=== PATIENT | male | born 1955 | race Caucasian/White ===

== ENCOUNTER 2021-06-15 10:15 | Emergency (ER) | payer BC ==
[~2021-06-15] VITALS: Ht 182.9 cm; Wt 90.7 kg
--- NOTE | 2021-06-15 10:26 | NUR ---
BIB SELF C/O R ARM AND R ELBOW PAIN S/P SLIP AND FALL IN THE LADDER. RATES PAINS 6/10. WILL CONTINUE TO MONITOR THE PATIENT.
--- NOTE | 2021-06-15 10:44 | NUR ---
x-ray tech at the bedside
[2021-06-15] MEDS ORDERED: IBUP-1955 PO (11:16)
[2021-06-15] MEDS ORDERED: KETOROLAC TROMETHAMINE 15 MG/ML VIAL ONE (11:21)
[2021-06-15] MEDS ORDERED: KETOROLAC TROMETHAMINE INJ 30 MG/ML VIAL IM ONE (11:30)
[2021-06-15 11:33] VITALS: BP 126/75
--- NOTE | 2021-06-15 11:33 | NUR ---
Patient discharged to home in stable condition. Written and verbal after care instructions given. Patient verbalizes understanding of instruction.
== END 2021-06-15 11:36 | disposition home or self-care (01) ==
LOC: ER 10:24
DX: S52.121A Displaced fracture of head of right radius, initial encounter for closed fracture (principal); W10.9XXA Fall (on) (from) unspecified stairs and steps, initial encounter; Y93.89 Activity, other specified; Y92.89 Other specified places as the place of occurrence of the external cause; Y99.8 Other external cause status
CPT/HCPCS: 29105; 73080; 96372; 99283; J1885

== ENCOUNTER 2021-10-23 19:34 | Inpatient (IN) | payer BC ==
[~2021-10-23] VITALS: Ht 182.9 cm; Wt 92.1 kg
[~2021-10-23 19:34] MED LIST: IBUP-1955 PO
--- NOTE | 2021-10-23 20:06 | NUR ---
BIBS. SUDDEN ONSET PALPITATION X 2 HRS W/ INTERMITENT CHEST PRESSURE. PT REPORTS C/P HAS IMPROVED BUT REPORTS AT HOME EKG SHOWED HR IN 150S. REPORT HISTORY OF AFIB A FEW YEARS PRIOR AND TAKES METOPROLOL. PT AWAKE AND ALERT X4 BREATHING EVEN AND UNLABORED. PLACED ON PRESSER ALL AROUND AND ALL V/S WNL.
--- NOTE | 2021-10-23 20:12 | NUR ---
20G RAC ESTABLISHED. BLOOD DRAWN AND SENT TO LAB.
[2021-10-23] MEDS ORDERED: ASPIRIN 325 MG TABLET ONE (20:22)
[2021-10-23] MEDS ORDERED: NITROGLYCERIN 0.4 MG/TAB BOTTLE ONE (20:22)
[2021-10-23] MEDS ORDERED: ASPIRIN 325 MG TABLET PO ONE (20:30)
[2021-10-23] MEDS ORDERED: NITROGLYCERIN 0.4 MG/TAB BOTTLE SL ONE (20:30)
[2021-10-23 20:31] LABS: BASOPHILS # (AUTO) 0.1 K/uL (0.0-0.2); BASOPHILS % (AUTO) 0.6 % (0.0-2.0); EOSINOPHILS % (AUTO) 3.8 % (0.0-6.0); HEMATOCRIT 46 % (39-51); HEMOGLOBIN 15.3 g/dL (13.5-17.5); LYMPHOCYTES # (AUTO) 1.8 K/uL (0.8-4.8); LYMPHOCYTES % (AUTO) 19.6 % (20.0-44.0); MEAN CORPUSCULAR HGB CONC 33 g/dl (31.0-36.0); MEAN CORPUSCULAR VOLUME 87 fL (80-96); MONOCYTES # (AUTO) 0.9 K/uL (0.1-1.30); MONOCYTES % (AUTO) 9.2 % (2.0-12.0); NEUTROPHILS # (AUTO) 6.2 K/uL (1.8-8.9); NEUTROPHILS % (AUTO) 66.8 % (43.0-81.0); PLATELET COUNT (AUTO) 370 K/uL (150-450); RED BLOOD CELL COUNT(AUTO) 5.29 MIL/uL (4.5-6.0); WHITE BLOOD COUNT (AUTO) 9.3 K/uL (4.3-11.0)
[2021-10-23 20:39] LABS: CALCIUM, SERUM 8.6 mg/dL (8.5-10.1); CARBON DIOXIDE 30 mmol/L (21-32); CHLORIDE 106 mmol/L (98-107); CREATININE 1.1 mg/dL (0.6-1.3); GLUCOSE 112 mg/dL (74-106); POTASSIUM 3.4 mmol/L (3.5-5.1); SODIUM SERUM 142 mmol/L (136-145); UREA NITROGEN, BLOOD 18 mg/dL (7-18)
--- NOTE | 2021-10-23 21:10 | NUR ---
shirley collected and sent to lab
[2021-10-23] MEDS ORDERED: MORPHINE SULFATE INJ 2 MG/ML DISP.SYRIN IV PRN (22:30)
[2021-10-23] MEDS ORDERED: MAG HYDROX/AL HYDROX/SIMETH 30 ML UDC PO PRN (22:30)
[2021-10-23] MEDS ORDERED: ACETAMINOPHEN 325 MG TABLET PO PRN (22:30)
[2021-10-23] MEDS ORDERED: ONDANSETRON HCL/PF 4 MG/2 ML VIAL IVP PRN (22:30)
[2021-10-23] MEDS ORDERED: NITROGLYCERIN 0.4 MG/TAB BOTTLE SL PRN (22:30)
[2021-10-23] MEDS ORDERED: DOCUSATE SODIUM 100 MG CAPSULE PO PRN (22:30)
[2021-10-23] MEDS ORDERED: METO-357 PO (23:50)
[2021-10-23] MEDS ORDERED: ATOR10TA PO (23:50)
[2021-10-23] MEDS ORDERED: ESCI20TA PO (23:50)
[2021-10-23] MEDS ORDERED: ALLO100T PO (23:50)
[2021-10-23] MEDS ORDERED: APIX5TAB PO (23:50)
--- NOTE | 2021-10-24 00:17 | NUR ---
REPORT GIVEN TO LONA
[2021-10-24 00:31] VITALS: BP 102/74
--- NOTE | 2021-10-24 00:33 | NUR ---
RN NOTE: RECEIVING FROM ER PATIENT ARRIVED TO UNIT FROM ER VIA GURNEY. PATIENT STABLE AND ABLE TO AMBULATE TO HIS BED. A/OX4. NO S/S OF DISTRESS, BREATHING WITHOUT DIFFICULTY ON ROOM AIR. RAC #20 INTACT AND PATENT. TELE MONITOR APPLIED AND READS SR 63. PATIENT'S BELONGINGS ACCOUNTED FOR, LOGGED INTO SHEET, AND PLACED IN CHART. PATIENT WAS ORIENTED TO THE UNIT, GIVEN CALL GIRON AND INSTRUCTED ON ITS USE. SAFETY MEASURES IN PLACE: BED LOCKED AND AT LOWEST POSITION, RAILS UP X2, CALL GIRON WITHIN REACH. WILL CONTINUE TO MONITOR PATIENT.
--- NOTE | 2021-10-24 00:36 | NUR ---
PT TRANSPORTED TO ROOM 324-2 ON CARDIAC PER ACLS IN STABLE CONDITION
[2021-10-24 01:43] VITALS: BP 102/74
[2021-10-24 04:00] VITALS: BP 128/76
[2021-10-24 06:01] LABS: BASOPHILS % (AUTO) 0.5 % (0.0-2.0); EOSINOPHILS % (AUTO) 5.7 % (0.0-6.0); HEMATOCRIT 42 % (39-51); LYMPHOCYTES % (AUTO) 27.3 % (20.0-44.0); MEAN CORPUSCULAR HGB CONC 33 g/dl (31.0-36.0); MEAN CORPUSCULAR VOLUME 88 fL (80-96); MONOCYTES # (AUTO) 0.8 K/uL (0.1-1.30); MONOCYTES % (AUTO) 10.6 % (2.0-12.0); NEUTROPHILS # (AUTO) 4.1 K/uL (1.8-8.9); NEUTROPHILS % (AUTO) 55.9 % (43.0-81.0); PLATELET COUNT (AUTO) 333 K/uL (150-450); RED BLOOD CELL COUNT(AUTO) 4.77 MIL/uL (4.5-6.0); WHITE BLOOD COUNT (AUTO) 7.4 K/uL (4.3-11.0)
[2021-10-24 06:27] LABS: THYROID STIMULATING HORMONE 2.494 uIU/mL (0.358-3.74)
--- NOTE | 2021-10-24 06:35 | NUR ---
RN CLOSING NOTE PATIENT AWAKE IN BED. A/OX4. NO S/S OF DISTRESS, BREATHING WITHOUT DIFFICULTY ON ROOM AIR. RAC #20 SL INTACT AND PATENT. TELE READS SB 53 W/ BBB, PVCs, AND PACs. SAFETY MEASURES IN PLACE: BED LOCKED AND AT LOWEST POSITION, RAILS UP X2, CALL GIRON WITHIN REACH. WILL ENDORSE TO THE NEXT SHIFT FOR LIZA.
[2021-10-24 07:01] LABS: ALBUMIN 3.2 g/dL (3.4-5.0); BILIRUBIN,TOTAL 0.3 mg/dL (0.2-1.0); CALCIUM, SERUM 8.4 mg/dL (8.5-10.1); CREATININE 1.1 mg/dL (0.6-1.3); MAGNESIUM 2.3 mg/dL (1.8-2.4); PHOSPHORUS 3.7 mg/dL (2.5-4.9); POTASSIUM 3.8 mmol/L (3.5-5.1); TOTAL PROTEIN, SERUM 6.1 g/dL (6.4-8.2)
--- NOTE | 2021-10-24 07:15 | NUR ---
RN OPENING NOTE RECEIVED PT IN BED AWAKE, A/OX 4. NO SIGNS OF RESPIRATORY DISTRESS OR SOB NOTED. STABLE ON RA. ON TELE MONITORING READING NSR AT 53. PT DENIES CHEST PAIN OR ANY PAIN AT THIS TIME. RIGHT AC 20G IV INTACT AND PATENT. SAFETY MEASURES: BED LOCKED, IN LOWEST POSITION, SIDE RAILS X2, CALL LIGHT WITHIN REACH. WILL CONTINUE TO MONITOR CLOSELY.
[2021-10-24 08:00] VITALS: BP 121/76
[2021-10-24 08:57] VITALS: BP 121/74
[2021-10-24] MEDS ORDERED: ASPIRIN 81 MG TAB.CHEW PO SCH (09:00)
[2021-10-24] MEDS ORDERED: METOPROLOL SUCCINATE 50 MG TAB.SR.24H PO SCH (09:00)
[2021-10-24] MEDS ORDERED: ALLOPURINOL 100 MG TABLET PO SCH (09:00)
[2021-10-24] MEDS ORDERED: ESCITALOPRAM OXALATE (10 MG) 10 MG TABLET PO SCH (09:00)
[2021-10-24] MEDS ORDERED: APIXABAN 5 MG TABLET PO SCH (09:00)
[2021-10-24] MEDS ORDERED: ENOXAPARIN SODIUM 60 MG/0.6 ML DISP.SYRIN SQ SCH (09:00)
--- NOTE | 2021-10-24 12:07 | NUR ---
PT DISCHARGE NOTE PT CONDITION STABLE AT DISCHARGE. NO C/O PAIN OF ANY KIND. DISCHARGE INSTRUCTIONS GIVEN. DISCHARGE PACKET GIVEN AND SIGNED BY THE PATIENT. IV TAKEN OUT AND TELE BOX TAKEN OFF. DISCHARGE TO HOME WILL DRIVE HIMSELF.
[2021-10-24] MEDS ORDERED: ATORVASTATIN 10 MG TABLET PO SCH (22:00)
== END 2021-10-24 12:05 | disposition home or self-care (01) | DRG 948 ==
LOC: ER 19:44 → TELE 23:45
PROVIDERS: ADMIT Registered Nurse; ATTEND Nurse Practitioner Family
DX: G89.18 Other acute postprocedural pain (principal); E87.6 Hypokalemia; I48.91 Unspecified atrial fibrillation; I11.0 Hypertensive heart disease with heart failure; I50.9 Heart failure, unspecified; Z79.899 Other long term (current) drug therapy; Z79.01 Long term (current) use of anticoagulants; K76.9 Liver disease, unspecified; F17.200 Nicotine dependence, unspecified, uncomplicated; E66.9 Obesity, unspecified; Z68.27 Body mass index [BMI] 27.0-27.9, adult; R73.9 Hyperglycemia, unspecified; R07.89 Other chest pain
CPT/HCPCS: 36415; 71045-TC; 80048-TC; 80053-TC; 83735-TC; 83880; 84100-TC; 84443-TC; 84484-TC; 85025-TC; 85378-TC; 87081-TC; 93307-TC; C9803; G0378

== ENCOUNTER 2022-02-22 07:37 | Inpatient (IN) | payer BC ==
[2022-02-22] VITALS (8 sets, daily range): BP systolic 89–114; BP diastolic 58–69
[~2022-02-22] VITALS: Ht 182.9 cm; Wt 96.6 kg
[~2022-02-22 07:37] MED LIST changes: +ALLO100T PO; +APIX5TAB PO; +ATOR10TA PO; +ESCI20TA PO; -IBUP-1955 PO; +METO-357 PO
--- NOTE | 2022-02-22 08:18 | NUR ---
C/O RLQ AB PAIN X 4 DAYS S/P COLONOSCOPY. DR. ESTEVEZ AT BEDSIDE FOR EVAL.
[2022-02-22] MEDS ORDERED: MORPHINE SULFATE INJ 4 MG/ML DISP.SYRIN ONE (08:23)
[2022-02-22] MEDS ORDERED: ONDANSETRON HCL/PF 4 MG/2 ML VIAL ONE (08:23)
[2022-02-22] MEDS ORDERED: IV NS 0.9% 1,000 ML BAG IV ONE (08:30)
[2022-02-22] MEDS ORDERED: ONDANSETRON HCL/PF 4 MG/2 ML VIAL IVP ONE (08:30)
[2022-02-22] MEDS ORDERED: MORPHINE SULFATE INJ 2 MG/ML DISP.SYRIN IV ONE (08:30)
--- NOTE | 2022-02-22 08:34 | NUR ---
ESTABLISHED IV 18G LEFT AC. BLOOD DRAWN AND SENT TO LAB. NS FLUIDS ADMINISTERED.
[2022-02-22 08:38] LABS: BASOPHILS # (AUTO) 0.1 K/uL (0.0-0.2); BASOPHILS % (AUTO) 0.7 % (0.0-2.0); EOSINOPHILS % (AUTO) 0.1 % (0.0-6.0); HEMATOCRIT 50 % (39-51); HEMOGLOBIN 16.4 g/dL (13.5-17.5); LYMPHOCYTES # (AUTO) 0.8 K/uL (0.8-4.8); LYMPHOCYTES % (AUTO) 5.3 % (20.0-44.0); MEAN CORPUSCULAR HGB CONC 33 g/dl (31.0-36.0); MEAN CORPUSCULAR VOLUME 88 fL (80-96); MONOCYTES # (AUTO) 1.2 K/uL (0.1-1.30); MONOCYTES % (AUTO) 7.7 % (2.0-12.0); NEUTROPHILS # (AUTO) 13.2 K/uL (1.8-8.9); NEUTROPHILS % (AUTO) 86.2 % (43.0-81.0); PLATELET COUNT (AUTO) 343 K/uL (150-450); RED BLOOD CELL COUNT(AUTO) 5.75 MIL/uL (4.5-6.0); WHITE BLOOD COUNT (AUTO) 15.3 K/uL (4.3-11.0)
--- NOTE | 2022-02-22 08:42 | NUR ---
INTERIOR DESIGN INSTRUCTOR AT BEDSIDE.
[2022-02-22 08:48] LABS: CALCIUM, SERUM 8.4 mg/dL (8.5-10.1); CARBON DIOXIDE 26 mmol/L (21-32); CHLORIDE 97 mmol/L (98-107); CREATININE 1.6 mg/dL (0.6-1.3); GLUCOSE 136 mg/dL (74-106); POTASSIUM 3.7 mmol/L (3.5-5.1); SODIUM SERUM 134 mmol/L (136-145); UREA NITROGEN, BLOOD 29 mg/dL (7-18)
[2022-02-22 08:54] LABS: ALANINE AMINOTRANSFERASE 18 U/L (12-78); ALBUMIN 3.2 g/dL (3.4-5.0); ALKALINE PHOSPHATASE 51 U/L (46-116); ASPARTATE AMINOTRANSFERASE 23 U/L (15-37); BILIRUBIN,DIRECT 0.3 mg/dL (0.0-0.2); BILIRUBIN,TOTAL 1.2 mg/dL (0.2-1.0); LIPASE 39 U/L (73-393); TOTAL PROTEIN, SERUM 7.6 g/dL (6.4-8.2)
[2022-02-22] MEDS ORDERED: IOHEXOL-300 100 ML VIAL IV ONE (09:08)
--- NOTE | 2022-02-22 09:12 | NUR ---
PT TAKEN TO CT VIA [facility]
[2022-02-22] MEDS ORDERED: CEFEPIME 1 GM in IV D5W 50 ML IV ONE (10:00)
--- NOTE | 2022-02-22 10:10 | NUR ---
CALLED [facility] FOR TELE BED.
[2022-02-22] MEDS ORDERED: ONDANSETRON HCL/PF 4 MG/2 ML VIAL IVP PRN (10:30)
[2022-02-22] MEDS ORDERED: Z GUARD REMEDY 4 OZ OINT TP PRN (10:30)
[2022-02-22] MEDS ORDERED: PANTOPRAZOLE 40 MG VIAL IV SCH (10:30)
[2022-02-22] MEDS ORDERED: MORPHINE SULFATE INJ 2 MG/ML DISP.SYRIN IV PRN (10:30)
[2022-02-22] MEDS ORDERED: IV D5/ 0.9% NACL 1,000 ML IV PRN (10:30)
--- NOTE | 2022-02-22 10:30 | NUR ---
COVID SWAB COLLECTED AND SENT TO LAB.
[2022-02-22] MEDS ORDERED: BUPIVACAINE MPF 0.5% W/EPI INJ 30 ML VIAL ONE (11:47)
[2022-02-22] MEDS ORDERED: LIDOCAINE 1% INJ 50 ML MDV IJ ONE (11:47)
--- NOTE | 2022-02-22 12:01 | NUR ---
DR. VELÁSQUEZ AT BEDSIDE.
--- NOTE | 2022-02-22 12:06 | NUR ---
NPO for surgery
--- NOTE | 2022-02-22 12:19 | NUR ---
PT TAKEN TO SURGERY VIA GURNEY. ALL PT BELONGINGS WITH PT.
[2022-02-22] MEDS ORDERED: HYDROMORPHONE INJ 2 MG/ML DISP.SYRIN ONE (12:27)
[2022-02-22] MEDS ORDERED: FENTANYL PF 250MCG/5ML AMPUL ONE (12:27)
[2022-02-22] MEDS ORDERED: FAMOTIDINE/PF INJ 20 MG/2 ML VIAL IV ONE (12:28)
[2022-02-22] MEDS ORDERED: MIDAZOLAM HCL 2 MG/2ML VIAL ONE (12:28)
[2022-02-22] MEDS ORDERED: ROCURONIUM BROMIDE 50 MG/5 ML ONE (12:29)
[2022-02-22] MEDS ORDERED: METRONIDAZOLE 500MG/ NS 100ML 100 ML IV ONE (12:30)
[2022-02-22] MEDS ORDERED: CEFEPIME 1 GM in IV D5W 50 ML IV SCH (13:00)
[2022-02-22] MEDS ORDERED: BACITRACIN ZINC OINT (15 GM) 15 GM TUBE TP ONE (14:54)
[2022-02-22] MEDS ORDERED: ALBUTEROL FS 2.5 MG/3 ML VIAL.NEB ONE (15:44)
[2022-02-22] MEDS ORDERED: DEXAMETHASONE SOD PHOSPHATE 10 MG/ML VIAL ONE (16:05)
[2022-02-22] MEDS ORDERED: methylPREDNISolone SOD SUCC 125 MG/2ML VIAL ONE (16:05)
[2022-02-22] MEDS ORDERED: FUROSEMIDE 20 MG/2 ML VIAL ONE (16:12)
[2022-02-22] MEDS ORDERED: MEPERIDINE25 MG SYR 25 MG/ML VIAL ONE (16:32)
--- NOTE | 2022-02-22 16:45 | NUR ---
RN NOTES RECEIVED PT IN ROOM 253 POST OP, FOR OBSERVATION , PT IS DRAWZY , FOLLOWS COMMAND, ON TELE ST , DRESSING TO ABD , CLEAN AND DRY AND INTACT, IV SITE CDI, NO DRAINAGE NOTED, O2 SAT IN HIGH 90'S, NO DISTRESS NOTED , VSS STABLE , CONTINUE TO MONITOR
[2022-02-22] MEDS: PANTOPRAZOLE 40 MG VIAL IV SCH (17:42)
[2022-02-22] MEDS: CELECOXIB 100 MG CAPSULE PO SCH (17:53)
[2022-02-22] MEDS: GABAPENTIN 300 MG CAPSULE PO SCH (17:53)
[2022-02-22] MEDS: ACETAMINOPHEN 325 MG TABLET PO SCH (17:54)
--- NOTE | 2022-02-22 17:54 | NUR ---
RN NOTES PT LETHARGIC , PO MEDS HELD AT THIS TIME ,
[2022-02-22] MEDS ORDERED: HYDROMORPHONE INJ 2 MG/ML DISP.SYRIN IV PRN (18:00)
[2022-02-22] MEDS: IV LR 1000 ML 1,000 ML IV PRN ×2 (18:07→23:42)
--- NOTE | 2022-02-22 18:13 | NUR ---
RN NOTES VSS STABLE,PT IS AWAKE, NO DISTESS NOTED, WILL ENDORSE TO MOBILITY SCOOTER REPAIRER NURSE FOR CONTINUITY OF CARE
--- NOTE | 2022-02-22 18:31 | NUR ---
RN NOTES PT REFUSED TO HAVE HYDROMORPHONE , STATED DOES NOT WORK FOR HIM , WANTS MORPHINE INSTEAD, BOOT TRIMMER NOTIFED, NEW ORDER RECEIVED
[2022-02-22] MEDS: ZOSYN IVPB 3.375 G in IV D5W 50ml IV SCH ×2 (19:03→23:42)
[2022-02-22] MEDS: MORPHINE SULFATE INJ 2 MG/ML DISP.SYRIN IV PRN (20:24)
[2022-02-22] MEDS ORDERED: CEFEPIME 1 GM VIAL ONE (21:46)
[2022-02-22] MEDS: CEFEPIME 2 GM in IV D5W 100 ML IV SCH (22:00)
[2022-02-23] VITALS (23 sets, daily range): BP systolic 85–120; BP diastolic 53–78
[2022-02-23] MEDS: GABAPENTIN 300 MG CAPSULE PO SCH ×3 (02:00→18:20)
[2022-02-23] MEDS: ACETAMINOPHEN 325 MG TABLET PO SCH ×3 (02:00→18:20)
[2022-02-23] MEDS: MORPHINE SULFATE INJ 2 MG/ML DISP.SYRIN IV PRN ×2 (04:29→10:00)
[2022-02-23 05:07] LABS: BASOPHILS % (AUTO) 0.1 % (0.0-2.0); HEMATOCRIT 43 % (39-51); HEMOGLOBIN 14.1 g/dL (13.5-17.5); LYMPHOCYTES # (AUTO) 0.3 K/uL (0.8-4.8); LYMPHOCYTES % (AUTO) 1.8 % (20.0-44.0); MEAN CORPUSCULAR HGB CONC 33 g/dl (31.0-36.0); MEAN CORPUSCULAR VOLUME 88 fL (80-96); MONOCYTES # (AUTO) 1.2 K/uL (0.1-1.30); MONOCYTES % (AUTO) 7.4 % (2.0-12.0); NEUTROPHILS # (AUTO) 14.2 K/uL (1.8-8.9); NEUTROPHILS % (AUTO) 90.7 % (43.0-81.0); PLATELET COUNT (AUTO) 293 K/uL (150-450); WHITE BLOOD COUNT (AUTO) 15.6 K/uL (4.3-11.0)
[2022-02-23 05:18] LABS: CALCIUM, SERUM 7.2 mg/dL (8.5-10.1); CREATININE 1.5 mg/dL (0.6-1.3); MAGNESIUM 1.8 mg/dL (1.8-2.4); PHOSPHORUS 2.8 mg/dL (2.5-4.9); POTASSIUM 4.4 mmol/L (3.5-5.1)
[2022-02-23] MEDS: IV LR 1000 ML 1,000 ML IV PRN ×3 (05:24→22:43)
[2022-02-23] MEDS: ZOSYN IVPB 3.375 G in IV D5W 50ml IV SCH ×3 (05:25→19:07)
[2022-02-23] MEDS: CELECOXIB 100 MG CAPSULE PO SCH ×2 (05:25→18:20)
[2022-02-23] MEDS: PANTOPRAZOLE 40 MG VIAL IV SCH ×2 (05:34→18:20)
[2022-02-23 06:32] LABS: THYROID STIMULATING HORMONE 0.677 uIU/mL (0.358-3.74)
--- NOTE | 2022-02-23 06:52 | NUR ---
RN CLOSING NOTE RECEIVED PATIENT ON 4L VIA NC. TITRATED DOWN TO RA. NO SOB NOTED. A/OX4. ST 102/ SR IN THE 90S. RUVALCABA CATHETER PRESENT, URINE IS SCHUYLER. NO BM. ABD INCISION C/D/I. PEDRO DRAIN , SEROSANGINOUS 50ML. PRN MORRPHINE GIVEN FOR PAIN. PATIENT STATED PAIN WITH DEEP BREATHING PROVIDED INCENTIVE SPIROMETER. LUNG BASE SOUND DIMINISHED. MAINTAINED NPO EXCEPT ICE. LR@175. ABX GIVEN ORDERED.
--- NOTE | 2022-02-23 07:10 | NUR ---
RN NOTE Received patient in bed. Patient is alert and conscious, pain 3-4/10. case monitor showed SR with PACs, HR 90/min. BP 103/70mmHg. Spo2 99% RA, RR 18/min. Temp 98.4. Abdominal wound is dry and intact, without oozing noted. PEDRO drain is under suction. Call botello is placed within reach. Bed is locked and placed in the lowest position. All safety measures have been implemented. Will continue monitoring and care.
[2022-02-23] MEDS: CEFEPIME 2 GM in IV D5W 100 ML IV SCH (09:07)
[2022-02-23] MEDS: ENOXAPARIN SODIUM 40 MG/0.4 ML DISP.SYRIN SQ SCH (10:29)
--- NOTE | 2022-02-23 11:40 | NUR ---
RN note - sitting out Assisted patient to sit at the edge of the bed, tolerated well. Then proceeded to sitting out in the chair. BP is good without active complaint during sit out for 60 minutes.
--- NOTE | 2022-02-23 12:00 | NUR ---
Urine sample for urinalysis and sodium is taken.
--- NOTE | 2022-02-23 13:00 | NUR ---
RN note - Dr. Abel's order Clarified with Dr. Abel about NPO state. He said that patient could take pills orally, so it's now NPOEM.
[2022-02-23] MEDS: Magnesium 1GM/D5W 100ML PREMIX 100 ML IV SCH ×3 (15:05→17:57)
--- NOTE | 2022-02-23 17:10 | NUR ---
RN Note Patient is alert and oriented during transfer. Handover is given to ANTONIO Savage. Wound is checked together and IV fluids checked together as well.
--- NOTE | 2022-02-23 17:15 | NUR ---
RN NOTE PATIENT TRANSFERRED FROM ICU TO [facility], ROOM 314-1. PT IS A/OX4. IS ON RA BREATHING EVEN AND NON LABORED.NO S/S OF DISTRESS OR SOB NOTED. IV ACCESS LAC #18G RUNNING MAGNESIUM. RUVALCABA CATHETER IN PLACE. ABDOMINAL INCISION NOTED WITH NO DRAINAGE, PEDRO DRAIN, 20ML. SAFETY MEASURES IN PLACE: CALL LIGHT WITHIN REACH, SIDE RAILS UP X 2, BED LOCKED IN LOWEST POSITION, HOB ELEVATED, BED ALARM ON. WILL CONTINUE TO MONITOR.
[2022-02-23 17:35] LABS: BILIRUBIN,URINE 1+ (NEGATIVE); COLOR,URINE YELLOW (YELLOW); LEUKOCYTE ESTERASE ,URINE NEGATIVE (NEGATIVE); NITRITE, URINE NEGATIVE (NEGATIVE); PROTEIN,URINE 1+ mg/dl (NEGATIVE); UGLUCOSE NEGATIVE (NEGATIVE)
[2022-02-23 17:39] LABS: BACTERIA,URINE None seen /HPF (None Seen); RBC,URINE 21-50 /HPF (0-2); WBC,URINE 0-2 /HPF (0-3)
[2022-02-23 17:40] LABS: URINE AMORPHOUS URATE Few /HPF (None Seen)
[2022-02-23 17:53] LABS: CREATININE, URINE 103.3 MG/DL (30.0-125.0)
--- NOTE | 2022-02-23 19:00 | NUR ---
POLITICAL CARTOONIST CLOSING NOTE PATIENT IN BED, A/OX4, HIS FRIEND BY HIS BEDSIDE. PT IS ON RA BREATHING EVEN AND NON LABORED. NOT IN CARDIAC DISTRESS. NO COMPLAIN OF PAIN. ON EXTERNAL CHIEF EXECUTIVE. IV ACCESS LAC #18G, RUNNING LR@175ML/HR. INTACT AND PATENT. PATIENT HAS PEDRO DRAIN IN PLACE. SAFETY MEASURES IN PLACE: CALL LIGHT WITHIN REACH, SIDE RAILS UP X 2, BED LOCKED IN LOWEST POSITION, HOB ELEVATED, BED ALARM ON. WILL ENDORSE TO ONCOMING RN FOR LIZA.
--- NOTE | 2022-02-23 20:31 | NUR ---
MS/TELE/RN PATIENT IS AWAKE, ALERT, ORIENTED, NO C/O PAIN AT THIS TIME, NO SIGNS OF DISTRESS NOTED, CALL LIGHT IN REACH, WILL MONITOR.
[2022-02-24] MEDS: ZOSYN IVPB 3.375 G in IV D5W 50ml IV SCH ×2 (01:12→06:46)
[2022-02-24] MEDS: ACETAMINOPHEN 325 MG TABLET PO SCH ×3 (02:15→17:35)
[2022-02-24] MEDS: GABAPENTIN 300 MG CAPSULE PO SCH ×3 (02:15→17:35)
[2022-02-24] MEDS: IV LR 1000 ML 1,000 ML IV PRN ×2 (05:07→17:09)
[2022-02-24] MEDS: CELECOXIB 100 MG CAPSULE PO SCH ×2 (05:26→17:35)
[2022-02-24] MEDS: PANTOPRAZOLE 40 MG VIAL IV SCH (05:27)
--- NOTE | 2022-02-24 05:57 | NUR ---
MS/TELE/RN PATIENT IS AWAKE, ALERT, ORIENTED, NO DISTRESS NOTED, CALL LIGHT IN REACH, ALL NEEDS ATTENDED AT THIS TIME, WILL CONTINUE TO MONITOR.
[2022-02-24 06:05] LABS: HEMATOCRIT 39 % (39-51); LYMPHOCYTES # (AUTO) 0.5 K/uL (0.8-4.8); LYMPHOCYTES % (AUTO) 3.4 % (20.0-44.0); MEAN CORPUSCULAR HGB CONC 34 g/dl (31.0-36.0); MEAN CORPUSCULAR VOLUME 86 fL (80-96); MONOCYTES # (AUTO) 1.3 K/uL (0.1-1.30); MONOCYTES % (AUTO) 8.3 % (2.0-12.0); NEUTROPHILS # (AUTO) 13.6 K/uL (1.8-8.9); NEUTROPHILS % (AUTO) 88.3 % (43.0-81.0); PLATELET COUNT (AUTO) 316 K/uL (150-450); RED BLOOD CELL COUNT(AUTO) 4.49 MIL/uL (4.5-6.0); WHITE BLOOD COUNT (AUTO) 15.5 K/uL (4.3-11.0)
[2022-02-24 06:15] LABS: CALCIUM, SERUM 7.9 mg/dL (8.5-10.1); POTASSIUM 3.9 mmol/L (3.5-5.1)
--- NOTE | 2022-02-24 07:15 | NUR ---
FLEXO OPERATOR OPENING NOTE RECEIVED PT AWAKE IN BED. A/OX4 AND ABLE TO MAKE NEEDS KNOWN. PT ON ROOM AIR SATURATING WELL. NO SIGNS OF RESPIRATORY DISTRESS, BREATHING EVEN AND NON LABORED. ON ENVIRONMENTAL REMEDIATION CONSULTANT, CURRENTLY AFIB WITH HX OF UNCONTROLLED AFIB, HR 132. PT STATES HAS HX OF AFIB AND IS AWARE OF CURRENT STATE, NO COMPLAINT OF CARDIAC DISTRESS OR PAIN AT THIS TIME. SAFETY MEASURES IN PLACE WITH BED IN LOWEST LOCKED POSITION, CALL LIGHT AND TRAY WITHIN REACH. WILL CONTINUE TO MONITOR.
--- NOTE | 2022-02-24 08:13 | NUR ---
RN NOTE PT CURRENTLY AFIB. EKG DONE. PT COMPLAINING OF MILD SOB, NC APPLIED WITH SUPPLEMENTAL OXYGEN FLOWING. DR. GONSALEZ INFORMED AND ATTENDING TO PATIENT.
[2022-02-24 08:43] VITALS: BP 122/87
[2022-02-24] MEDS: ENOXAPARIN SODIUM 40 MG/0.4 ML DISP.SYRIN SQ SCH (09:02)
[2022-02-24] MEDS ORDERED: LORAZEPAM INJ 2 MG/ML VIAL IV PRN (09:30)
[2022-02-24] MEDS ORDERED: AMIODARONE 450 MG in IV D5W 250 ML IV PRN (10:00)
[2022-02-24] MEDS ORDERED: AMIODARONE 150 MG in IV D5W 100 ML IV ONE (10:00)
[2022-02-24] MEDS: APIXABAN 5 MG TABLET PO SCH ×3 (10:00→17:08)
--- NOTE | 2022-02-24 11:00 | NUR ---
RECEIVED PATIENT FROM MED SURG AND ARRIVED TO THE UNIT VIA HOSPITAL BED ACCOMPANIED BY NURSE MARIE. PATIENT WAS PLACED ON HEART MONITOR WITH A-FIB ON TELE MONITOR WITH HR OF 122. PATIENT DENIES ANY CHEST PAIN OR DISCOMFORT AT THIS TIME. PATIENT IS ALERT, ORIENTED X 4. PATIENT HAS IV ACCESS ON LEFT AC, PATENT, FLUSHES WELL, NO S/S INFILTRATION NOTED. RECEIVED ORDERS FOR AMIODARONE DRIP, ORDERS WILL BE CARRIED OUT. RUVALCABA CATHETER IN PLACE, AND WAS DRAINING YELLOW COLORED URINE, NO HEMATURIA AND NO SEDIMENTATION NOTED. ABDOMINAL DRESSING CLEAN AND DRY WITH PEG-TUBE DRAINING SMALL AMOUNT OF SEROSANGUINEOUS DRAINAGE. PATIENT WAS ORIENTED TO THE ROOM AND INSTRUCTED TO PLEASE USE THE CALL LIGHT NEEDED. ALL SAFETY MEASURES IN PLACE. BED LOCKED AND IN LOWEST POSITION WITH BED ALARM ON. WILL CONTINUE TO MONITOR PATIENT THROUGHOUT SHIFT.
--- NOTE | 2022-02-24 11:00 | NUR ---
RN NOTES PATIENT TRANSFERRED TO [facility] ROOM 102 VIA ACLS PROTOCOL AND RECEIVED BY [facility] RN LARA.
[2022-02-24 12:00] VITALS: BP 137/89
[2022-02-24] MEDS: AMIODARONE 450 MG in IV D5W 241 ML IV PRN ×2 (12:46→18:36)
[2022-02-24] MEDS: CYANOCOBALAMIN 1,000 MCG/ML VIAL SQ SCH (12:54)
[2022-02-24] MEDS: PIPERACILLIN /TAZOBACTAM 3.375 G in IV D5W 100 ML IV SCH ×2 (13:05→21:46)
[2022-02-24 16:00] VITALS: BP 132/91
--- NOTE | 2022-02-24 18:58 | NUR ---
[facility] TELE CLOSING NOTES: PATIENT IN BED, AWAKE, ALERT, ORIENTED X 4 WATCHING TV AT THIS TIME. NO C/O PAIN NOR CHEST DISCOMFORT THE ENTIRE TIME HE WAS TRANSFERRED TO THE UNIT. PATIENT CURRENTLY ON UNCONTROLLED A-FIB WITH HR OF 105 PER TELE MONITOR. IV ACCESS ON LEFT AC, RUNNING WITH AMIODARONE DRIP OF 0.5 MG/MIN ORDERED, SITE PATENT, NO S/S INFILTRATION NOTED. ALSO HAS LR RUNNING @ 70 ML/HR VIA LEFT HAND, SITE WITH NO INFILTRATION NOTED. RUVALCABA CATHETER IN PLACE, EMPTIED 1200 ML OF YELLOW COLORED URINE, NO HEMATURIA AND NO SEDIMENTATION NOTED. ABDOMINAL DRESSING CLEAN AND DRY WITH J-HORNER INTACT, EMPTIED 40 ML OF SEROSANGUINEOUS DRAINAGE. NOTED WITH MINIMAL HYPOACTIVE BOWEL SOUNDS. ALL SAFETY MEASURES IMPLEMENTED. BED LOCKED AND IN LOWEST POSITION WITH BED ALARM ON. ALL NEEDS MET AND ANTICIPATED. WILL ENDORSE TO NEXT SHIFT NURSE FOR CONTINUITY OF CARE.
--- NOTE | 2022-02-24 19:30 | NUR ---
PATIENT IN BED, AWAKE, ALERT, ORIENTED X 4. NO C/O PAIN NOR CHEST DISCOMFORT CURRENTLY ON UNCONTROLLED A-FIB WITH HR OF 105 PER TELE MONITOR. IV ACCESS ON LEFT AC, INFUSING AMIODARONE DRIP AT 0.5 MG/MIN ORDERED. ALSO HAS LR INFUSING @ 70 ML/HR VIA LEFT HAND. RUVALCABA CATHETER IN PLACE, WITH J-HORNER NOTED. SAFETY MEASURES IN PLACE. WILL CONTINUE PLAN OF CARE.
[2022-02-24 20:00] VITALS: BP 133/92
[2022-02-24] MEDS: PANTOPRAZOLE 40 MG TABLET.DR PO SCH (21:46)
[2022-02-25] VITALS: BP 124/86
[2022-02-25] MEDS: ACETAMINOPHEN 325 MG TABLET PO SCH ×3 (01:28→17:05)
[2022-02-25] MEDS: GABAPENTIN 300 MG CAPSULE PO SCH ×3 (01:28→17:05)
[2022-02-25 04:00] VITALS: BP 133/97
[2022-02-25] MEDS: PIPERACILLIN /TAZOBACTAM 3.375 G in IV D5W 100 ML IV SCH ×2 (04:00→12:34)
[2022-02-25] MEDS: IV LR 1000 ML 1,000 ML IV PRN ×2 (05:12→23:47)
[2022-02-25] MEDS: CELECOXIB 100 MG CAPSULE PO SCH ×2 (05:15→17:05)
[2022-02-25 06:29] LABS: BASOPHILS % (AUTO) 0.6 % (0.0-2.0); EOSINOPHILS % (AUTO) 0.2 % (0.0-6.0); HEMATOCRIT 43 % (39-51); HEMOGLOBIN 14.1 g/dL (13.5-17.5); LYMPHOCYTES # (AUTO) 0.8 K/uL (0.8-4.8); LYMPHOCYTES % (AUTO) 9.7 % (20.0-44.0); MEAN CORPUSCULAR HGB CONC 33 g/dl (31.0-36.0); MEAN CORPUSCULAR VOLUME 87 fL (80-96); MONOCYTES # (AUTO) 0.9 K/uL (0.1-1.30); MONOCYTES % (AUTO) 11.3 % (2.0-12.0); NEUTROPHILS # (AUTO) 6.5 K/uL (1.8-8.9); NEUTROPHILS % (AUTO) 78.2 % (43.0-81.0); PLATELET COUNT (AUTO) 362 K/uL (150-450); RED BLOOD CELL COUNT(AUTO) 4.91 MIL/uL (4.5-6.0); WHITE BLOOD COUNT (AUTO) 8.3 K/uL (4.3-11.0)
--- NOTE | 2022-02-25 06:32 | NUR ---
PT ASLEEP, EASILY AWAKEN BY CALLING HIS NAME. A/O X4. NO C/O PAIN NOR CHEST DISCOMFORT AT THIS TIME. CURRENTLY ON UNCONTROLLED A-FIB WITH HR OF 120'S PER TELE MONITOR. IV ACCESS ON LEFT AC, INFUSING AMIODARONE DRIP AT 0.5 MG/MIN ORDERED. ALSO HAS LR INFUSING @ 70 ML/HR VIA LEFT HAND. RUVALCABA CATHETER IN PLACE, WITH J-HORNER NOTED. DUE MEDS GIVEN. NEEDS ATTENDED. SAFETY MEASURES IN PLACE. WILL ENDORSE TO NEXT NURSE ON DUTY FOR CONTINUITY OF CARE.
[2022-02-25 06:50] LABS: CALCIUM, SERUM 7.9 mg/dL (8.5-10.1); MAGNESIUM 2.7 mg/dL (1.8-2.4); POTASSIUM 3.7 mmol/L (3.5-5.1)
[2022-02-25] MEDS: AMIODARONE 450 MG in IV D5W 241 ML IV PRN (06:50)
--- NOTE | 2022-02-25 07:42 | NUR ---
[facility] RN NOTE PT IN BED , ALERT ORIENTED A/O X4. NO C/O PAIN NOR CHEST DISCOMFORT AT THIS TIME. CURRENTLY ON UNCONTROLLED A-FIB WITH HR OF 112 PER TELE MONITOR. IV ACCESS ON LEFT AC, INFUSING AMIODARONE DRIP AT 0.5 MG/MIN ORDERED. ALSO HAS LR INFUSING ZOSYN AT THIS TIME LEFT HAND. RUVALCABA CATHETER IN PLACE, WITH J-HORNER DRAIN NOTED. 50 ML SEROSANGUINEOUS DRAINAGE ON RT SIDE OF ABDOMEN , ALL NEEDS ATTENDED. SAFETY MEASURES IN PLACE.ABDOMINAL DRESSING IN PLACE ,NO ACTIVE BLEEDING NOTED WILL CONT TO MONITOR
--- NOTE | 2022-02-25 08:15 | NUR ---
[facility] RN NOTE REPORTED TO DR GONSALEZ THAT PATIENT ON MONITOR STILL AFIB 110-130 ON AMIO DRIOP ,WILL BE COMPLETED ON 12 NOON ,STATED THAT WILL CHECK IT OUT
[2022-02-25 08:16] VITALS: BP 123/75
--- NOTE | 2022-02-25 08:28 | NUR ---
[facility] RN NOTE SEEN BY DR OCHOA INFORM THAT ON TELE MONITOR AFIB HR 129 STATED ITS OK FOR NOW,WILL MONITOR
[2022-02-25] MEDS: APIXABAN 5 MG TABLET PO SCH ×2 (08:33→16:26)
[2022-02-25] MEDS: PANTOPRAZOLE 40 MG TABLET.DR PO SCH ×2 (08:34→20:39)
--- NOTE | 2022-02-25 09:06 | NUR ---
BUTTON BREAKER NOTE CALLED TO DR MARIANNE DOMINGUEZ TO GIVE ICE CHIPS, ORDER CARRIED OUT
--- NOTE | 2022-02-25 09:33 | NUR ---
[facility] RN NOTE PER DR GONSALEZ OK TO GET UP, AWARE THAT HR 128-130 ON TELE MONITOR AFIB
--- NOTE | 2022-02-25 10:45 | NUR ---
iam rn note mid line inserted as ordered cont on amio drip
[2022-02-25] MEDS: CYANOCOBALAMIN 1,000 MCG/ML VIAL SQ SCH (10:53)
[2022-02-25 12:00] VITALS: BP 131/81
--- NOTE | 2022-02-25 12:03 | NUR ---
iam rn note patient able to sit at edge of bed and stand up ,per dr king ok to stand up , able ro stand up few minutes but hr go up afib 145 , but no sob noted ,paced back to bed, will monitor , still on amio drip as ordered
[2022-02-25] MEDS ORDERED: DILTIAZEM HCL CD 120 MG PO STA (13:09)
--- NOTE | 2022-02-25 13:13 | NUR ---
iam edwards complected on tele monitor still he afib 125-135, dr king notified with order Diltazem 240 mg time one , po. order carried out Addendum: 02/25/22 at 1434 by LULA ABRAHAM RN 1325 [address] will monitor hr
[2022-02-25] MEDS: ONDANSETRON HCL/PF 4 MG/2 ML VIAL IV PRN ×2 (15:06→18:50)
--- NOTE | 2022-02-25 15:23 | NUR ---
unique king notified that he stillhr afib 135, ordered cardioversion tomorrow, npo post mid night ,transferred to icu tomorrow by 1100 am, will nannette\u. also noted patient was vomiting Zofran 6 mg ivp given as ordered ,will f\u Addendum: 02/25/22 at 1529 by LULA ABRAHAM RN ANTONIO NOTE CONSENT FOR CARDIOVERSION AND ANESTHESIA SIGNED BY PATIENT Addendum: 02/25/22 at 1541 by LULA ABRAHAM RN CHARGE NURSE CELESTIN SPOKE WITH LARRY NURSING LETTERPRESS PRINTING MACHINIST ABOUT MANAGEMENT ICU BED FOR CARDIOVERSION TOMORROW
[2022-02-25 16:00] VITALS: BP 127/79
--- NOTE | 2022-02-25 18:04 | NUR ---
RN NOTE PATIENTS PO MEDICATION ELOQUIS SWITCHED TI SQ LOVANOX BY DR Vahid LARA, SINCE PATIENT UNABLE TO TAKE PO MEDS, VOMITED TWICE AFTER PO MEDS.
--- NOTE | 2022-02-25 18:09 | NUR ---
RN NOTE DR LOPES MADE A ROUNDS, NOTIFIED ABOUT PTs CONDITION, AWARE PT WAS VOMITING
--- NOTE | 2022-02-25 18:25 | NUR ---
[facility] RN NOTE ALL NEEDS ATTEND, KAROLINA BALTAZAR X4 ,ON 2L NC NO SOB NOTED AT THIS TIME,WITH J-P DRAIN 75 ML LIGHT SEROSANGUINEOUS DRAINAGE WITH RUVALCABA CATH WITH YELLOW SCHUYLER COLOR , ON TELE MONITOR AFIB HT [address] LOPES AND DR GONSALEZ NOTIFIED ALSO DR LOPES ORDERED REGLAN 10MG IVQ6 HOUR START TOMORROW Addendum: 02/25/22 at 1916 by LULA ABRAHAM RN NOTED VOMITING ZOFRAN 6 MG IVP GIVEN ORDERED
--- NOTE | 2022-02-25 19:18 | NUR ---
[facility] RN NOTE PER DR LOPES ORDER CHANGE IVF LR AT 100 ML PER HOUR
[2022-02-25 20:00] VITALS: BP 105/68
--- NOTE | 2022-02-25 20:21 | NUR ---
RN NOTE PT NOTED TO BE SINUS RHYTHM SINCE 02/[address] HR [address] GONSALEZ NOTIFIED AND RECEIVED ORDER TO CANCEL CARDIOVERSION IN AM.
[2022-02-25] MEDS: PIPERACILLIN /TAZOBACTAM 3.375 G in IV NS 0.9% 100 ML IV SCH (20:38)
--- NOTE | 2022-02-25 22:30 | NUR ---
[facility] RN OPENING NOTES: Received pt in bed, A/O X4, on 3L NC, O2 sat 94%, SOB and cough, no other s/sx of respiratory distress, SR since 184 with HR of 85. Sanchez intact and patent, draining clear and yellow urine. PEDRO patent and draining serosanguineous, midline at right upper arm with LR infusing 100cc/hr. Bed in lowest position, call light within reach, side rails up x2. Will continue to monitor throughout the night.
[2022-02-26] VITALS (7 sets, daily range): BP systolic 92–136; BP diastolic 50–75
[2022-02-26] MEDS: GABAPENTIN 300 MG CAPSULE PO SCH ×3 (02:00→17:01)
[2022-02-26] MEDS: ACETAMINOPHEN 325 MG TABLET PO SCH ×3 (02:00→17:01)
[2022-02-26] MEDS: PIPERACILLIN /TAZOBACTAM 3.375 G in IV NS 0.9% 100 ML IV SCH ×3 (05:09→20:28)
[2022-02-26] MEDS: CELECOXIB 100 MG CAPSULE PO SCH ×2 (06:00→17:01)
[2022-02-26 06:50] LABS: EOSINOPHILS % (AUTO) 0.1 % (0.0-6.0); HEMATOCRIT 44 % (39-51); HEMOGLOBIN 14.5 g/dL (13.5-17.5); LYMPHOCYTES # (AUTO) 0.4 K/uL (0.8-4.8); LYMPHOCYTES % (AUTO) 3.9 % (20.0-44.0); MEAN CORPUSCULAR HGB CONC 33 g/dl (31.0-36.0); MEAN CORPUSCULAR VOLUME 87 fL (80-96); MONOCYTES # (AUTO) 0.3 K/uL (0.1-1.30); MONOCYTES % (AUTO) 3.2 % (2.0-12.0); NEUTROPHILS # (AUTO) 8.9 K/uL (1.8-8.9); NEUTROPHILS % (AUTO) 92.8 % (43.0-81.0); PLATELET COUNT (AUTO) 389 K/uL (150-450); RED BLOOD CELL COUNT(AUTO) 5.02 MIL/uL (4.5-6.0); WHITE BLOOD COUNT (AUTO) 9.6 K/uL (4.3-11.0)
[2022-02-26 07:00] LABS: CALCIUM, SERUM 8.1 mg/dL (8.5-10.1); CREATININE 1.3 mg/dL (0.6-1.3); POTASSIUM 3.4 mmol/L (3.5-5.1)
--- NOTE | 2022-02-26 07:00 | NUR ---
[facility] RN NOTE RECEIVED PT IN BED , ALERT ORIENTED A/O X4. NO C/O PAIN NOR CHEST DISCOMFORT AT THIS TIME. SINUS RHYTHM ON TELE MONITOR HR OF 98. IV ACCESS ON LEFT UPPER ARM MIDLINE, RUNNING RL, ALSO HAS LR INFUSING ZOSYN AT THIS TIME LEFT HAND. RUVALCABA CATHETER IN PLACE, WITH J-HORNER DRAIN NOTED , ALL NEEDS ATTENDED. SAFETY MEASURES IN PLACE.ABDOMINAL DRESSING IN PLACE ,NO ACTIVE BLEEDING NOTED WILL CONT TO MONITOR
--- NOTE | 2022-02-26 07:22 | NUR ---
[facility] RN CLOSING NOTE PT REMAINS IN BED, AWAKE, A7O X4, CALM, COOPERATIVE. CONTINUES TO BE ON 2L NC WITH O2SAT IN THE 90S; CONTINUES TO HAVE PRODUCTIVE COUGH; NO OTHER S/S OF RESP DISTRESS, NO SOB, NON-LABORED AND EQUAL BREATHING. PT ATTACHED TO BEDSIDE MONITOR, SR WITH HR NOTED TO BE HIGH 125. PEDRO DRAIN INTACT AND PATENT, DRAINING SEROUS SANGUINEOUS FLUIDS. TYSHAWN MIDLINE INTACT AND PATENT, FLUSHES EASILY WITH NO RESISTANCE, LR INFUSING AT 100 ML/HR. PT REPORTED TO HAVE PASSED GAS 10X LAST NIGHT WITH HELP OF CHANGING POSITION AND SHIFTING WEIGHT IN BED; NO BM. ALL DUE MEDS ADMINISTERED DURING THE NIGHT. BED IN LOWEST POSITION, CALL LIGHT WITHIN REACH, SIDE RAILS UP X2. WILL ENDORSE TO DAYSHIFT NURSE TO CONTINUE CARE.
[2022-02-26] MEDS: POTASSIUM CHLORIDE 20 MEQ TAB.PRT.SR PO SCH ×3 (08:59→11:37)
[2022-02-26] MEDS: METOCLOPRAMIDE HCL 10 MG/2 ML VIAL IV SCH ×3 (08:59→20:28)
[2022-02-26] MEDS: PANTOPRAZOLE 40 MG TABLET.DR PO SCH ×2 (08:59→20:28)
[2022-02-26] MEDS: ENOXAPARIN SODIUM 100 MG/ML DISP.SYRIN SQ SCH ×2 (09:00→20:29)
[2022-02-26] MEDS ORDERED: POTASSIUM CL. PREMIX PERIPHER. 50 ML IV SCH (09:00)
[2022-02-26] MEDS ORDERED: FUROSEMIDE 20 MG/2 ML VIAL IV ONE (09:30)
[2022-02-26] MEDS: CYANOCOBALAMIN 1,000 MCG/ML VIAL SQ SCH (11:37)
[2022-02-26] MEDS ORDERED: FUROSEMIDE 40 MG/4 ML VIAL IV ONE (12:15)
--- NOTE | 2022-02-26 12:15 | NUR ---
RN NOTES: SPOKE TO DR GONSALEZ PT HAS SOB,URINE OUTPUT SINCE 7 AM 300 CC, IV FLUID WAS STOPPED AROUND 1030 AND IN LASIX GIVEN AROUND 1045 WITH ORDER OF STAT CHEST X RAY AND IV LASIX 80 MG X 1 NOW
--- NOTE | 2022-02-26 12:30 | NUR ---
patient desaturates on 2 liter n/c to 88 %.tried on 4 to 5 liters still on 89%.
--- NOTE | 2022-02-26 12:31 | NUR ---
on o2 masks at 8 liters sat on 94 %dr. king at bedside. aware.
--- NOTE | 2022-02-26 13:04 | NUR ---
dr. king at bedside assessing patient,awaits chest xray,will continue to monitor.
--- NOTE | 2022-02-26 13:20 | NUR ---
dr. bernstein in surgery informed dr. king evaluate pt..awaits cxr.
--- NOTE | 2022-02-26 13:34 | NUR ---
dr. bernstein called updated with pt. condition ok for pt. to have water aware pt. abdominal distention.
--- NOTE | 2022-02-26 13:38 | NUR ---
patient verbalized feels better with face mask oxygen.
--- NOTE | 2022-02-26 13:56 | NUR ---
cxr result relayed to dr. king hold further lasix.primary rn made aware.
--- NOTE | 2022-02-26 15:05 | NUR ---
RN NOTES: DR LOPES CALLED TO GIVE FLEET ENEMA IF NO BM MAY GIVE ANOTHER ENEMA IN 1 HOUR
[2022-02-26] MEDS ORDERED: NA PHOS,M-B/NA PHOS,DI-BA 1 EA ENEMA RC PRN (15:30)
--- NOTE | 2022-02-26 15:59 | NUR ---
RN NOTES: ENEMA GIVEN ORDERED, ASSISTED PT TO COMMODE ABLE TO PASS SMALL BM, DT MARIANNE AWARE
[2022-02-26 17:30] LABS: BAND % (MANUAL) 26 % (0.0-5.0); LYMPHOCYTES % (MANUAL) 4 % (16-48); MONOCYTES % (MANUAL) 3 % (0-11.0); NEUTROPHILS % (MANUAL) 67 (42-76)
--- NOTE | 2022-02-26 17:38 | NUR ---
rn notes: noted pt with 2 watery bm
--- NOTE | 2022-02-26 18:13 | NUR ---
RN NOTES" NOTED PT DESATURATED 77% AND WITH SOB, PLACED ON NON REBREATHER MASK 15 LITER , O2 SAT CAME UP 95%, NOTIFIED DR LAMA WITH ORDER TO REPEAT STAT CHEST X RAY
--- NOTE | 2022-02-26 18:30 | NUR ---
RN NOTES: SEEN BY DR MARIANNE MANLEY PT WITH 4 WATERY BM HE SAID IT IS EXPECTED, PT DID NOT HAVE BM FOR 4 DAYS, WITH ORDER TO CHANGE THE DIET TO REGULAR CARDIAC DIET START TOMORROW, ALSO ORDERED SUCTION BY RT DUE TO GARGLING
[2022-02-26] MEDS ORDERED: ACETYLCYSTEINE 10% SOLN 400 MG/4 ML VIAL NEB PRN (19:00)
[2022-02-26] MEDS ORDERED: IPRATROPIUM NEB FS 0.5 MG/2.5 ML AMPUL.NEB NEB PRN (19:00)
--- NOTE | 2022-02-26 19:28 | NUR ---
[facility] RN CLOSING NOTE PT REMAINS IN BED, AWAKE, A&O X4, CALM, COOPERATIVE. ON NON REBREATHER 15 LITER/MIN, O2 SAT 96-98%; STILL GARGLING. PER RT SHE SUCTION A LITTLE SECRETION AND PT START TO VOMIT, PT NEED BREATHING TREATMENT. PT ATTACHED TO BEDSIDE MONITOR, SR-ST 98-105. PEDRO DRAIN INTACT AND PATENT, DRAINING SEROUS SANGUINEOUS FLUIDS 50ML. TYSHAWN MIDLINE INTACT AND PATENT, FLUSHES EASILY WITH NO RESISTANCE, LR INFUSING AT 100 ML/HR. ALL DUE MEDS ADMINISTERED DURING THE SHIFT. BED IN LOWEST POSITION, CALL LIGHT WITHIN REACH, SIDE RAILS UP X2. WILL ENDORSE TO RESPIRATORY TECHNICIAN NURSE TO CONTINUE CARE.
--- NOTE | 2022-02-26 20:00 | NUR ---
TD RN OPENING NOTES RECEIVED PT. IN BED, ALERT/ORIENTED X4. AFEBRILE. NO C/O PAIN AT THIS TIME. ON NON REBREATHER MASK 15 LITER/MIN, WELL TOLERATED O2 SAT 98%, NO SOB, NO GARGLING NOTED AT THIS TIME. PT ATTACHED TO BEDSIDE MONITOR, SR-ST 100-105. PEDRO DRAIN INTACT, PATENT AND SECURED, DRAINING SEROUS SANGUINEOUS FLUIDS. TYSHAWN MIDLINE INTACT AND DRY. BED IN LOWEST POSITION, CALL LIGHT WITHIN REACH, SIDE RAILS UP X2. WILL CONT POC.
--- NOTE | 2022-02-26 23:00 | NUR ---
TD RN NOTES CXR RESULTS RELAYED TO DR. PEDRAZA, NO NEW ORDERS AT THIS TIME.
[2022-02-27] VITALS (52 sets, daily range): BP systolic 67–138; BP diastolic 37–99
[2022-02-27] MEDS: ACETAMINOPHEN 325 MG TABLET PO SCH ×3 (01:56→17:29)
[2022-02-27] MEDS: GABAPENTIN 300 MG CAPSULE PO SCH ×3 (01:57→17:29)
[2022-02-27] MEDS: METOCLOPRAMIDE HCL 10 MG/2 ML VIAL IV SCH ×4 (02:08→21:36)
[2022-02-27] MEDS: PIPERACILLIN /TAZOBACTAM 3.375 G in IV NS 0.9% 100 ML IV SCH (04:04)
[2022-02-27] MEDS: CELECOXIB 100 MG CAPSULE PO SCH (05:01)
--- NOTE | 2022-02-27 06:26 | NUR ---
TD RN CLOSING NOTES PT. IN BED, ASLEEP, EASILY ABUSABLE. NO PAIN/DISCOMFORT NOTED. PT AFEBRILE. STILL ON NON-REBREATHER MASK AT 15LPM, WELL DEAN, SATTING 97%. VS REMAINS STABLE. PEDRO INTACT, DRAINING WELL. FC IN PLACED, SECURED AND PATENT. ALL NEEDS MET. KEPT PT CLEAN AND DRY AT ALL TIMES. CALL LIGHT WITHIN EASY REACH. SAFETY MEASURES IMPLEMENTED AT ALL TIMES. WILL ENDORSE TO NEXT SHIFT FOR LIZA.
--- NOTE | 2022-02-27 06:30 | NUR ---
TD RN NOTES WHILE CLEANING THE PT, MASTER OCEAN CAME AND SAID HR IS UP TO 155BPM, BP 85/58, PT REMAINS ON NON-REBREATHER AT 15LPM, SATTING 92% NO C/O PAIN, PT VERBALLY RESPONSIVE. PER PT HE FEELS PALPITATIONS. DR. GONSALEZ MADE AWARE, AWAITING FOR REPLY.
--- NOTE | 2022-02-27 07:00 | NUR ---
TD RN NOTES SEEN AND EXAMINED BY DR. GONSALEZ WITH ORDER FOR STAT CXR AND NS 500CC BOLUS. WILL ENDORSE TO NASREEN ALVAREZ FOR LIZA.
[2022-02-27 07:24] LABS: EOSINOPHILS % (AUTO) 0.1 % (0.0-6.0); HEMATOCRIT 42 % (39-51); HEMOGLOBIN 13.8 g/dL (13.5-17.5); LYMPHOCYTES # (AUTO) 0.3 K/uL (0.8-4.8); LYMPHOCYTES % (AUTO) 3.3 % (20.0-44.0); MEAN CORPUSCULAR HGB CONC 33 g/dl (31.0-36.0); MEAN CORPUSCULAR VOLUME 89 fL (80-96); MONOCYTES # (AUTO) 0.2 K/uL (0.1-1.30); MONOCYTES % (AUTO) 2.2 % (2.0-12.0); NEUTROPHILS # (AUTO) 9.2 K/uL (1.8-8.9); NEUTROPHILS % (AUTO) 94.4 % (43.0-81.0); PLATELET COUNT (AUTO) 426 K/uL (150-450); RED BLOOD CELL COUNT(AUTO) 4.75 MIL/uL (4.5-6.0); WHITE BLOOD COUNT (AUTO) 9.8 K/uL (4.3-11.0)
[2022-02-27] MEDS ORDERED: IV NS 0.9% 500 ML IV ONE ×2 (07:30→12:30)
--- NOTE | 2022-02-27 07:30 | NUR ---
TD RN AM NOTES RECEIVED PT. IN BED, ALERT/ORIENTED X4. AFEBRILE. NO C/O PAIN AT THIS TIME. ON NON REBREATHER MASK 15 LITER/MIN, WELL TOLERATED O2 SAT 92%, NO SOB, NO GARGLING NOTED AT THIS TIME. ST 165-168. DENIES PAIN AT THIS TIME. LEFT HAND G20, TYSHAWN MIDLINE G 18, BOTH FLUSHES WELL, BOTH SITE CLEAR. S/P EX LAP WITH RIGHT HEMICOLECTOMY, WITH PEDRO DRAIN INTACT, PATENT AND SECURED, DRAINING SEROUS SANGUINEOUS FLUIDS. CARDIAC REGULAR DIET. ASSISTED. RUVALCABA CATH IN PLACE. BED IN LOWEST POSITION, CALL LIGHT WITHIN REACH, SIDE RAILS UP X2. WILL CONT TO MONITOR.
[2022-02-27 07:31] LABS: CALCIUM, SERUM 7.6 mg/dL (8.5-10.1); CREATININE 2.7 mg/dL (0.6-1.3); POTASSIUM 4.5 mmol/L (3.5-5.1)
--- NOTE | 2022-02-27 07:54 | NUR ---
RN NOTES PER DR. GONSALEZ. TRANSFER TO ICU DC IVF
[2022-02-27] MEDS ORDERED: HEPARIN INFUSION/D5W 500 ML IV PRN ×2 (08:00→18:00)
--- NOTE | 2022-02-27 08:40 | NUR ---
RN NOTES PT TRANSFERRED TO ICU 264. BEDSIDE REPORT GIVEN TO RED RN FOR LIZA.
[2022-02-27] MEDS: DIGOXIN INJ 0.5 MG/2 ML AMPUL IV SCH ×3 (09:51→21:36)
[2022-02-27] MEDS: PANTOPRAZOLE 40 MG TABLET.DR PO SCH (09:52)
[2022-02-27 09:58] LABS: ABG BASE EXCESS -14.2 mmol/L; ABG OXYGEN SATURATION 85.2 % (92.0-98.5); ABG PCO2 30.7 mmHg (35.0-45.0); ABG PH 7.216 (7.350-7.450); ABG PO2 53.6 mmHg (75.0-100.0); AaDO2 628.7 mmHg; COHb 0.9 % (0.5-1.5); MetHb 0.5 % (0.0-1.5); SITE, ABG Right Radial
--- NOTE | 2022-02-27 10:00 | NUR ---
REMEDIATION CONSULTANT NOTE: DR. GONSALEZ ORDERED HEPARIN DRIP. [facility] CALLED AND WANTED TO START THE PT.'S HEPARIN DRIP AT 1999 BECAUSE PT. LAST RECEIVED LOVENOX LAST NIGHT AROUND 1999. PTT THIS AM IS 47.
--- NOTE | 2022-02-27 10:15 | NUR ---
DYNAMOMETER TESTER ENGINE NOTE: PT. WAS PUT ON BIPAP FROM NON-REBREATHER MASK DUE TO CONTINUED DESATURATION. WILL CONTINUE TO MONITOR FOR ANY CHANGES.
[2022-02-27] MEDS: CEFEPIME 2 GM in IV D5W 100 ML IV SCH ×2 (10:25→21:26)
[2022-02-27] MEDS ORDERED: IV D5/ 0.9% NACL 1,000 ML IV PRN (10:30)
--- NOTE | 2022-02-27 11:00 | NUR ---
ORTHOPHOTOGRAPHY TECHNICIAN NOTE: DR. CARIAS DECIDED TO INTUBATE THE PT. DUE TO PERSISTENT DESATURATION EVEN ON BIPAP.
[2022-02-27] MEDS: PROPOFOL 100 ML IV PRN ×3 (11:15→20:52)
[2022-02-27 12:12] LABS: ABG BASE EXCESS -22.9 mmol/L; ABG OXYGEN SATURATION 69.1 % (92.0-98.5); ABG PCO2 55.9 mmHg (35.0-45.0); ABG PH 6.896 (7.350-7.450); ABG PO2 51.2 mmHg (75.0-100.0); AaDO2 605.9 mmHg; COHb 0.9 % (0.5-1.5); MetHb 0.8 % (0.0-1.5); O2Hb 67.9 % (94.0-97.0); SITE, ABG Right Radial; VENT MODE, BG AC 18 500 +5 100%
[2022-02-27] MEDS: CYANOCOBALAMIN 1,000 MCG/ML VIAL SQ SCH (12:13)
[2022-02-27] MEDS ORDERED: SODIUM BICARBONATE SYR 50 MEQ/50 ML DISP.SYRIN IV ONE ×4 (12:30→22:00)
--- NOTE | 2022-02-27 12:30 | NUR ---
FABRIC WORKER FOREMAN NOTE: LAB CALLED TO REPORT CRITICAL VALUE OF PROCALCITONIN AT 91.12. DR. FLOREZ AT BEDSIDE AND NOTIFIED HER OF THE CRITICAL LAB VALUE. WAITING FOR ORDERS.
[2022-02-27] MEDS ORDERED: METRONIDAZOLE 500 MG TABLET PO SCH (13:00)
[2022-02-27] MEDS ORDERED: PHENYLEPHRINE 50 MG in IV NS 0.9% 245 ML IV PRN ×2 (13:00→14:00)
[2022-02-27] MEDS ORDERED: VANCOMYCIN 1.5 GM in IV D5W 500 ML IV SCH (14:00)
[2022-02-27 14:25] LABS: ABG BASE EXCESS -21.2 mmol/L; ABG OXYGEN SATURATION 71.1 % (92.0-98.5); ABG PCO2 62.6 mmHg (35.0-45.0); ABG PH 6.909 (7.350-7.450); ABG PO2 50.4 mmHg (75.0-100.0); COHb 0.7 % (0.5-1.5); MetHb 0.7 % (0.0-1.5); O2Hb 70.1 % (94.0-97.0); SITE, ABG Right Radial; VENT MODE, BG AC 26 600 +10 100%
[2022-02-27] MEDS: NOREPINEPHRINE 32 MG in IV NS 0.9% 218 ML IV PRN ×2 (14:35→21:02)
[2022-02-27] MEDS: METRONIDAZOLE 500MG/ NS 100ML 500 MG in PREMIX 1 EA IV SCH ×2 (15:05→21:36)
--- NOTE | 2022-02-27 16:00 | NUR ---
HEEL COVERER MACHINE OPERATOR NOTE: PT. RECEIVED 2 ROUNDS OF 100 MEQ SODIUM BICARB PER DR. CARIAS'S ORDER. DR. CARIAS ALSO ORDERED FOR PRESSORS TO KEEP MAP >65 AND TITRATE PEEP TILL 16 TO KEEP AN O2 SAT OF AT LEAST 88%. PT. CURRENTLY SATURATING AT 76% WITH AC - 28; VT - 600; FIO2 - 100% AND PEEP - 10. WILL CONTINUE TO MONITOR FOR ANY CHANGES.
[2022-02-27] MEDS: PHENYLEPHRINE 100 MG in IV NS 0.9% 240 ML IV PRN ×3 (16:29→22:17)
[2022-02-27 16:50] LABS: ABG OXYGEN SATURATION 74.2 % (92.0-98.5); ABG PCO2 56.6 mmHg (35.0-45.0); ABG PH 6.958 (7.350-7.450); ABG PO2 47.9 mmHg (75.0-100.0); AaDO2 608.5 mmHg; COHb 0.8 % (0.5-1.5); MetHb 0.7 % (0.0-1.5); O2Hb 73.1 % (94.0-97.0); PEEP,BG 12 cm H2O; SITE, ABG Right Radial; VT, ABG 625 mL
[2022-02-27] MEDS ORDERED: Sodium Bicarbonate 150 MEQ in IV D5W 1,000 ML IV SCH (18:00)
[2022-02-27] MEDS ORDERED: VASOPRESSIN INJ 40 UNIT in IV NS 0.9% 38 ML IV PRN (18:30)
--- NOTE | 2022-02-27 19:10 | NUR ---
NUCLEAR CARDIOLOGY TECHNOLOGIST SHIFT SUMMARY: PT. WAS TRANSFERRED TO ICU FROM [facility] AT 0845. REPORT GIVEN AT BEDSIDE BY RN NASREEN. PT. WAS ON NON-REBREATHER MASK, AOX4, ABLE TO TOLERATE FLUIDS WITHOUT ANY S/S OF ASPIRATION. WAS LATER PUT ON BIPAP, STILL DESATURATING AND WAS LATER INTUBATED. CURRENT SETTINGS IS: ETT - 7.5/23; AC - 28; VT - 675; FIO2 - 100% AND PEEP - 15. PT. STILL SATURATING AT 70%. DR. CARIAS AWARE. PT. RECEIVED 2 DOSES OF DIGOXIN SO FAR, AFIB UNCONTROLLED WITH HR OF 117 BPM AT THIS TIME. RATE IMPROVED PT. CAME TO ICU THIS AM WITH HR OF 161 BPM. PT. HAD 2 DIARRHEA BM. RUVALCABA CATH DRAINED 100 ML, CLEAR SCHUYLER URINE. ABDOMINAL SURGICAL INCISION WITH PEDRO DRAIN THAT DRAINED 25 ML SEROSANGUINOUS OUTPUT THIS SHIFT. IV ACCESS ON L HAND #20G, PATENT AND SALINE LOCKED; TYSHAWN MIDLINE WITH PROPOFOL AT 50 MCG/KG/MIN; LEVOPHED AT 1 MCG/KG/MIN; NEOSYNEPHRINE AT 3 MCG/KG/MIN AND SODIUM BICARB 150MEQ IN DEXTROSE RUNNING AT 100 ML/HR. WAITING FOR VASOPRESSIN DRIP FROM PHARMACY. IV DRESSING C/D/I WITH NO S/S OF INFILTRATION. HEPARIN DRIP TO START AT 1999. LATEST PTT IS 48.7. ENDORSED CONTINUITY OF CARE TO ELECTRICAL DESIGNER DRAFTER RN BROWN.
--- NOTE | 2022-02-27 19:10 | NUR ---
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 INITIAL ASSESSMENT. RECEIVED THE PT REST IN BED. ORALLY INTUBATED. ETT 7.5,LIP 23CM, AC 28,TV 675, FIO2 100%, PEEP 15. SAT 72%. PT IS VERY UNSTABLE. LEVO, MIO MAX OUT. JUST STARTED VASO, PUPIL DILATED, NO REACTIVE, NO GAG OR COUGH REFLEX. HOB ELEAVTED. FC PATENT. ANURIC, TEMPERATURE 101. COLD BATH GIVEN. IV RT UPPER ARM MID LINE. RT AND LT HAND PIV. BICARB DRIP 100ML/H, MIO 3, LEVO 1, VASO 0.03U/H, WILL MONITOR.
[2022-02-27] MEDS ORDERED: PHENYLEPHRINE 100 MG in IV NS 0.9% 240 ML IV PRN (20:00)
--- NOTE | 2022-02-27 20:00 | NUR ---
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 MIO VASO, LEVO MAX OUT. BP STILL LOW. NOTIFIED DR PEDRAZA. EPI DRIP STARTED.
--- NOTE | 2022-02-27 20:10 | NUR ---
STORE COORDINATOR PT IS VERY UNSTABLE. NOTIFIED PT BROTHER
[2022-02-27 20:27] LABS: BAND % (MANUAL) 34 % (0.0-5.0); EOSINOPHILS % (MANUAL) 1 % (0-4); LYMPHOCYTES % (MANUAL) 11 % (16-48); METAMYELOCYTES % 6 % (0-0); MONOCYTES % (MANUAL) 3 % (0-11.0); NEUTROPHILS % (MANUAL) 45 (42-76)
--- NOTE | 2022-02-27 20:30 | NUR ---
HEALTH SCIENCE SPECIALIST. MD CARIAS CALLED PT UPDATE GIVEN. VENT SETTINGS PEEP CHANGED TO 18, AFTER 1 H REPEAT ABG.
--- NOTE | 2022-02-27 20:40 | NUR ---
VENT SETTING CHANGED TO PEEP OF 18 PER MD'S ORDER. RN JAIME AWARE. ABG AFTER 1 HR.
[2022-02-27] MEDS ORDERED: PANTOPRAZOLE 40 MG VIAL IV SCH (21:00)
[2022-02-27] MEDS ORDERED: ACETAMINOPHEN 650 MG/SUPP.RECT RC PRN (21:00)
[2022-02-27] MEDS: EPINEPHRINE (1:1000) 10 MG in IV NS 0.9% 240 ML IV PRN ×2 (21:10→23:45)
[2022-02-27] MEDS ORDERED: DIGOXIN INJ 0.5 MG/2 ML AMPUL ONE (21:35)
--- NOTE | 2022-02-27 21:38 | NUR ---
ABG DONE , RESULT GIVEN TO ANTONIO SANDOVAL . VENT SETTING CHANGED TO VT 700,PEEP 20. ANOTHER ABG AFTER 2HRS PER DR. CARIAS ORDER.
[2022-02-27 21:44] LABS: ABG BASE EXCESS -18.3 mmol/L; ABG OXYGEN SATURATION 70.9 % (92.0-98.5); ABG PCO2 53.8 mmHg (35.0-45.0); ABG PH 7.005 (7.350-7.450); ABG PO2 46.2 mmHg (75.0-100.0); COHb 0.7 % (0.5-1.5); MetHb 0.7 % (0.0-1.5); O2Hb 69.9 % (94.0-97.0); PEEP,BG 18 cm H2O; SITE, ABG Left Brachial; VT, ABG 675 mL
[2022-02-27] MEDS ORDERED: SODIUM BICARBONATE SYR 50 MEQ/50 ML DISP.SYRIN ONE ×2 (21:53→21:58)
--- NOTE | 2022-02-27 23:07 | NUR ---
EMPLOYMENT OFFICER. 2129 ABG DONE. RESULT NOTIFIED DR CARIAS. VENT SETTINGS CHANGED, . REPEAT ABG 0000
[2022-02-28] VITALS (27 sets, daily range): BP systolic 52–82; BP diastolic 29–50
--- NOTE | 2022-02-28 00:29 | NUR ---
GREASE MACHINE WORKER. LOVENOX NOT GIVEN, HEPARIN DRIP STARTED
[2022-02-28] MEDS ORDERED: VASOPRESSIN INJ 20 UNIT/ML VIAL ONE (00:32)
--- NOTE | 2022-02-28 00:41 | NUR ---
CHAIRMAN OF THE BOARD. PT IS VERY UNSTABLE TO REPOSITION.
[2022-02-28] MEDS: EPINEPHRINE (1:1000) 10 MG in IV NS 0.9% 240 ML IV PRN ×2 (00:55→02:39)
--- NOTE | 2022-02-28 01:11 | NUR ---
CAR ICER. ABG DONE 0000. RESULT NOTIFIED MD LEZAMA. NO ORDER
[2022-02-28 01:14] LABS: ABG BASE EXCESS -21.3 mmol/L; ABG PCO2 51.6 mmHg (35.0-45.0); ABG PH 6.947 (7.350-7.450); ABG PO2 55.4 mmHg (75.0-100.0); COHb 0.2 % (0.5-1.5); MetHb 0.8 % (0.0-1.5); O2Hb 80.1 % (94.0-97.0); PEEP,BG 20 cm H2O; SITE, ABG Right Brachial; VT, ABG 700 mL
[2022-02-28] MEDS: NOREPINEPHRINE 32 MG in IV NS 0.9% 218 ML IV PRN (01:59)
[2022-02-28] MEDS: GABAPENTIN 300 MG CAPSULE PO SCH (02:00)
[2022-02-28] MEDS: ACETAMINOPHEN 325 MG TABLET PO SCH (02:00)
--- NOTE | 2022-02-28 02:00 | NUR ---
BODY MAN. I SPOKE WITH PT BROTHER . GIVEN UPDATE, PT IS VERY CRITICAL.
[2022-02-28] MEDS ORDERED: EPINEPHRINE (1:1000) 1 MG/ML AMPUL ONE ×2 (02:24→02:29)
[2022-02-28] MEDS: PHENYLEPHRINE 100 MG in IV NS 0.9% 240 ML IV PRN (03:56)
[2022-02-28] MEDS ORDERED: DEXTROSE 50%-WATER 50 ML DISP.SYRIN ONE (04:29)
--- NOTE | 2022-02-28 04:30 | NUR ---
SECURITY AND COMPLIANCE PROJECT MANAGER. NOTIFIED [employer]. AT 0430.SPOKE PERSON WAS KACI. PER KACI DECEDENT ELIGIBLE FOR ORGAN DONATION. CASE NO -[id number] .
--- NOTE | 2022-02-28 05:00 | NUR ---
MACHINE OVERHAULER. CALLED FINISHED HARDWARE ERECTOR . SPOKE WITH RAUL. RELEASED THE BODY. NO FINISHED HARDWARE ERECTOR CASE.
--- NOTE | 2022-02-28 05:00 | NUR ---
PEN AND PENCIL REPAIRER. CODE BLUE ACTIVATED AT 0416. FOR MONITOR SHOWING ASYSTOLE . NO PULSE. ER MD AT BED SIDE, ACLS PROTOCOL INITIATED. SEE CODE BLUE SHEET.
--- NOTE | 2022-02-28 05:00 | NUR ---
POST MORTEM CARE GIVEN. BODY SEND [facility]
--- NOTE | 2022-02-28 05:05 | NUR ---
BIBLE WORKER CODE BLUE AT 0416, END 043. PRONOUNCED BY MD BOUCHER (.ER)
[2022-02-28] MEDS ORDERED: SUCCINYLCHOLINE CHLORIDE 20 MG/ML VIAL IV ONE (11:01)
[2022-02-28] MEDS ORDERED: ETOMIDATE 2 MG/ML VIAL IV ONE (11:01)
[2022-02-28] MEDS ORDERED: EPINEPHRINE (1:10,000) SYRINGE 1 MG/10 ML DISP.SYRIN IVP ONE (11:01)
[2022-02-28] MEDS ORDERED: Sodium Bicarbonate 50 MEQ/50 ML VIAL IV ONE (11:01)
[2022-02-28] MEDS ORDERED: DEXTROSE 50%-WATER 50 ML VIAL IV ONE (11:01)
[2022-02-28] MEDS ORDERED: CALCIUM CHLORIDE 1,000 MG/10 ML DISP.SYRIN IV ONE (11:01)
[2022-02-28] MEDS ORDERED: VANCOMYCIN 1 GM in IV D5W 250 ML IV SCH (14:00)
== END 2022-02-28 11:02 | DRG 853 ==
LOC: ER 07:44 → TRANSITION 12:27 → MED 14:13 → ICU 16:57 → TELE 02-23 16:35 → TELE-TD 02-24 10:37 → TELE1 02-26 08:51 → TELE-TD 02-26 16:31 → ICU 02-27 08:37
PROVIDERS: ADMIT Nurse Practitioner Acute Care; ATTEND Internal Medicine
PROC: 0DTF0ZZ Resection of Right Large Intestine, Open Approach (ICD-10-PCS; principal; 2022-02-22)
PROC: 0D1K0Z4 Bypass Ascending Colon to Cutaneous, Open Approach (ICD-10-PCS; 2022-02-22)
PROC: 0DNB0ZZ Release Ileum, Open Approach (ICD-10-PCS; 2022-02-22)
PROC: 05H933Z Insertion of Infusion Device into Right Brachial Vein, Percutaneous Approach (ICD-10-PCS; 2022-02-25)
PROC: 5A1935Z Respiratory Ventilation, Less than 24 Consecutive Hours (ICD-10-PCS; 2022-02-27)
PROC: 0BH17EZ Insertion of Endotracheal Airway into Trachea, Via Natural or Artificial Opening (ICD-10-PCS; 2022-02-27)
PROC: 5A2204Z Restoration of Cardiac Rhythm, Single (ICD-10-PCS; 2022-02-28)
DX: A41.9 Sepsis, unspecified organism (principal); J15.6 Pneumonia due to other Gram-negative bacteria; J80 Acute respiratory distress syndrome; K63.1 Perforation of intestine (nontraumatic); N17.0 Acute kidney failure with tubular necrosis; K65.9 Peritonitis, unspecified; R65.21 Severe sepsis with septic shock; J69.0 Pneumonitis due to inhalation of food and vomit; K56.50 Intestinal adhesions [bands], unspecified as to partial versus complete obstruction; E87.1 Hypo-osmolality and hyponatremia; E87.20 Acidosis, unspecified; I48.20 Chronic atrial fibrillation, unspecified; J98.11 Atelectasis; K56.7 Ileus, unspecified; I10 Essential (primary) hypertension; Z79.01 Long term (current) use of anticoagulants; Z79.899 Other long term (current) drug therapy; F32.A Depression, unspecified; E78.5 Hyperlipidemia, unspecified; M10.9 Gout, unspecified; Z20.822 Contact with and (suspected) exposure to COVID-19; F17.200 Nicotine dependence, unspecified, uncomplicated; F10.21 Alcohol dependence, in remission; Z98.890 Other specified postprocedural states; E86.1 Hypovolemia; E66.9 Obesity, unspecified; Z68.27 Body mass index [BMI] 27.0-27.9, adult; G47.33 Obstructive sleep apnea (adult) (pediatric); I70.0 Atherosclerosis of aorta; Y95 Nosocomial condition; D18.03 Hemangioma of intra-abdominal structures; E16.2 Hypoglycemia, unspecified; E87.6 Hypokalemia; K59.00 Constipation, unspecified; R57.0 Cardiogenic shock
CPT/HCPCS: 31720; 36415; 36600; 71045-TC; 74018; 80048-TC; 80061-TC; 80076-TC; 81001; 82570-TC; 82803-TC; 82962-TC; 83605-TC; 83690-TC; 83735-TC; 83880; 84100-TC; 84300-TC; 84439-TC; 84443-TC; 84484-TC; 85025-TC; 85730-TC; 86803; 87040-TC; 87081-TC; 87806; 88307-TC; 93307-TC; 94002-TC; 94003-TC; 94660; 94799-TC; A4216; A4349; C9113; C9803; G0378; J0171; J0282; J0330; J0690; J0692; J1100; J1160; J1170; J1644; J1650; J1940; J2175; J2250; J2270; J2370; J2405; J2543; J2704; J2765; J2930; J3010; J3370; J3420; J3475; J3490; J7030; J7040; J7042; J7050; J7060; J7070; J7120; Q9967